=== PATIENT | female | born 1960 | race Caucasian/White ===

== ENCOUNTER → 2020-09-07 11:18 | Outpatient (CLI) | payer BC, SELFPAY ==
[2020-09-08 06:51] LABS: COVID19 Sendout Not Detected (Not Detect)
== END ==
PROVIDERS: Visit Provider Nurse Practitioner
DX: Z11.59 Encounter for screening for other viral diseases (principal)
CPT/HCPCS: 87635

== ENCOUNTER 2020-09-10 09:46 | Day surgery (SDC) | payer BC, SELFPAY ==
--- NOTE | 2020-09-10 | PATH_ITS ---
[facility] Accession Number: [id number] . 01 Material submitted: . endometrium - ENDOMETRIAL CURETTINGS . 02 Diagnosis: Endometrial Curettings: Scant benign glandular elements and non-psammomatous calcifications (non-specific) are present. Please see comment. MRV 09/14/2020 1420 Local . 02 Comment: Due to the scant nature of this biopsy, it may not be entirely floor representative of this patient's endometrium; additional sampling could be considered, if clinically appropriate. . Scant glandular fragments are present in a background of blood and fibrin. . . 02 Electronically signed: . Savi Smith MD, Pathologist NPI- [id number] . 01 Gross description: . The specimen is received in formalin, labeled endometrial curettings, and consists of multiple russell fragments of soft tissue measuring 0.6 x 0.5 x 0.2 cm in aggregate. The specimen is filtered and entirely submitted in cassette A1. ([id number]) /R 09/11/2020 1708 Local . 02 Pathologist provided ICD-10: N95.0, N88.2, N85.00, N85.4 . 02 CPT . 992025 Performed at: [address] [facility] [address], [place], [place] [id number] MD Saúl Montoya MD Phone: [phone] Performed at: 02 [facility] [address] [place], [place] [id number] MD Maryjo Cruz MD Phone: [phone]
[2020-09-10 10:07] VITALS: BMI 24.5
[2020-09-10 10:13] VITALS: BP 123/77; PULSE 62; RESP 12; TEMP 37.1; O2SAT 98
[2020-09-10] MEDS: LACTATED RINGERS 1,000 ML 100 ML IV (10:22)
--- NOTE | 2020-09-10 10:46 | PM.HP.1 ---
History of Present Illness History of Present Illness Date Patient Seen: 09/10/20 Time Patient Seen: 10:46 Chief complaint: NJC Narrative: Patient is a 60-year-old 2 para 2 with postmenopausal bleeding, endometrial hyperplasia, cervical stenosis, and insufficient endometrium on office biopsy. She is here for a D&C hysteroscopy Patient History Medical History (Updated 08/11/20 @ 18:44 by Haydee Alvarez MD) Cervical stenosis (uterine cervix) (Acute) Surgical History (Updated 08/11/20 @ 18:42 by Haydee Alvarez MD) H/O umbilical hernia repair (Acute) History of section (Acute) Family & Social History Social History: household members spouse Tobacco & Substance use: Smoking Status Never smoker alcohol intake current alcohol intake frequency 0-2 drinks per day Substance Use Type does not use Meds Home Medications and Allergies Home Medications Medication Instructions Recorded Confirmed Type atorvastatin [Lipitor] 20 mg PO DAILY 09/10/20 09/10/20 History citalopram 10 mg PO DAILY 09/10/20 09/10/20 History selenium 200 mcg PO DAILY 09/10/20 09/10/20 History Allergies Allergy/AdvReac Type Severity Reaction Status Date / Time No Known Drug Allergies Allergy Verified 09/10/20 10:00 Exam Vital Signs (past 8 hours): - 09/10/20 10:13 Temperature 98.8 F Pulse Rate 62 Respiratory Rate 12 Blood Pressure 123/77 Pulse Oximetry 98 Oxygen Delivery Method Room Air Narrative Exam Narrative: HEENT: No thyromegaly, no anterior cervical or supraclavicular lymphadenopathy. Lungs:Clear to auscultation bilaterally, no wheezes. Cardiovascular: Regular rate and rhythm, no murmurs, rubs, or gallops. Abdomen: Well-healed scars. No hepatosplenomegaly. No masses palpable. External genitalia: Normal Vagina: Normal Cervix: Stenotic Bimanual exam: 6 Week size retroverted uterus. Mobile. Rectal: No masses. Assessment & Plan Assessment & Plan narrative: Assessment: 60-year-old 2 para 2 with postmenopausal bleeding, endometrial hyperplasia, cervical stenosis, insufficient endometrial biopsy in the office Plan: D&C hysteroscopy The risks, benefits, and alternatives to the procedure were explained to the patient. The risks including bleeding, infection, and uterine perforation. She understands these risks and agrees to proceed. A full par Q was held and consent form was signed. COVID-19 COVID-19 status: Negative Result date/Date tested (Pos, Neg/Pending): 09/07/20 Time Spent With Patient Time with patient: 15-24 minutes
--- NOTE | 2020-09-10 10:50 | PM.PREOP ---
Pre-operative Note COVID-19 COVID-19 status: Negative Result date/Date tested (Pos, Neg/Pending): 09/07/20 Interval Note History & Physical reviewed/Exam performed by Physician: Yes Changes to H&P: No H&P completed within 30 days and has changed as indicated here:: 09/10/20
--- NOTE | 2020-09-10 11:12 | SUR.OPER ---
Lithotomy on padded OR bed, head on pillow, arms secured on padded arm boards at <90 degrees abduction. Legs secured in padded yellow fins stirrups.
[2020-09-10 11:43] VITALS: BP 96/62; PULSE 59; RESP 12; TEMP 36.3; O2SAT 98
[2020-09-10 11:48] VITALS: BP 100/59; PULSE 57; RESP 14; O2SAT 97
[2020-09-10 11:53] VITALS: BP 100/53; PULSE 54; RESP 14; O2SAT 99
--- NOTE | 2020-09-10 11:57 | PM.HP.1 ---
History of Present Illness History of Present Illness Date Patient Seen: 09/10/20 Time Patient Seen: 11:57 Chief complaint: SDC Narrative: Patient is a 60-year-old 2 para 2 with postmenopausal bleeding, endometrial hyperplasia, cervical stenosis, and insufficient endometrium on office biopsy. She is here for a D&C hysteroscopy Patient History Medical History (Updated 08/11/20 @ 18:44 by Haydee Alvarez MD) Cervical stenosis (uterine cervix) (Acute) Surgical History (Updated 08/11/20 @ 18:42 by Haydee Alvarez MD) H/O umbilical hernia repair (Acute) History of section (Acute) Family & Social History Social History: household members spouse Tobacco & Substance use: Smoking Status Never smoker alcohol intake current alcohol intake frequency 0-2 drinks per day Substance Use Type does not use Meds Home Medications and Allergies Home Medications Medication Instructions Recorded Confirmed Type atorvastatin [Lipitor] 20 mg PO DAILY 09/10/20 09/10/20 History citalopram 10 mg PO DAILY 09/10/20 09/10/20 History selenium 200 mcg PO DAILY 09/10/20 09/10/20 History Allergies Allergy/AdvReac Type Severity Reaction Status Date / Time No Known Drug Allergies Allergy Verified 09/10/20 10:00 Exam Vital Signs (past 8 hours): - 09/10/20 10:13 09/10/20 11:43 09/10/20 11:48 Temperature 98.8 F 97.3 F L Pulse Rate 62 59 L 57 L Respiratory Rate 12 12 14 Blood Pressure 123/77 96/62 100/59 L Pulse Oximetry 98 98 97 Oxygen Delivery Method Room Air
[2020-09-10] MEDS: OXYCODONE/ACETAMINOPHEN 5/325 TABLET 1 TAB PO (12:00)
[2020-09-10 12:08] VITALS: BP 109/66; PULSE 53; RESP 14; O2SAT 98
[2020-09-10 12:15] VITALS: BP 110/60; PULSE 55; RESP 16; TEMP 36.3; O2SAT 98
--- NOTE | 2020-09-11 10:55 | PM.GYNOP.1 ---
Operative Date/Time/Diagnoses Date of procedure: 09/11/20 Time of procedure: 11:30 Pre-op diagnosis: Postmenopausal bleeding Cervical stenosis Endometrial hyperplasia Insufficient biopsy in the office Post-op diagnosis: same Procedure & Clinicians Procedure: Procedures Operation Date: 09/10/20 11:00 Actual Procedures Side Surgeon p Hysteroscopy D&C Haydee Alvarez MD Indications: Postmenopausal bleeding Cervical stenosis Endometrial hyperplasia Insufficient biopsy in the office Surgeon: Haydee Alvarez Anesthesia Type: General (LMA) Operative Notes Findings: Retroflexed uterus Cervical stenosis Possible false tract Closure Type: not applicable Specimen(s): endometrial curettings Estimated blood loss (mL): 5 Procedure in detail: Patient was pretreated with Cytotec the night before surgery, intra vaginal. After informed consent was obtained, the patient was taken to the operating room where she was placed in the dorsal supine position. After adequate LMA general anesthesia was achieved, she was placed in the dorsal lithotomy position, and prepped and draped in the usual sterile fashion. A time-out was performed. A bivalve speculum was placed into the vagina and the anterior lip of the cervix grasped with a single-tooth tenaculum. An attempt was made to dilate the cervix to the retroverted position. The usual dilators, Hegar scope, were too large. The gold handled small dilators going down to#1 were used. The cervix was eventually dilated to the # 8 Hegar dilator. The hysteroscope passed into the endometrial cavity. The fallopian tube ostia could not be observed. There was a question of whether this was a false track. The hysteroscope was pulled back. There did not appear to be any other entry into the endometrial canal. The hysteroscope was removed. Gentle sharp curettage was performed yielding a small amount of endometrial curettings. The instruments were removed from the uterus. The single-tooth tenaculum was removed from the anterior lip of the cervix. The bivalve speculum was removed from the vagina. Sponge, lap, and instrument counts were correct x2. The patient tolerated the procedure well, and was taken to PACU in stable condition. Complications: none Post-operative Condition: stable Disposition: PACU Plan for aftercare: Home after recovery
== END 2020-09-10 12:37 | disposition home or self-care (01) ==
PROVIDERS: Referring Provider Obstetrics & Gynecology; Visit Provider Obstetrics & Gynecology
PROC: 0UDB8ZZ Extraction of Endometrium, Via Natural or Artificial Opening Endoscopic (ICD-10-PCS; CPT 58558; principal; 2020-09-10 11:00)
DX: N95.0 Postmenopausal bleeding (principal); N85.00 Endometrial hyperplasia, unspecified; N85.4 Malposition of uterus
CPT/HCPCS: 58558; J1100; J1885; J2405; J2704; J3010

== ENCOUNTER → 2021-07-08 09:45 | Outpatient (CLI) | payer BC, SELFPAY ==
[2021-07-08 11:30] LABS: COVID19 -Nasal RAPID Negative (Negative)
== END ==
PROVIDERS: PCP Registered Nurse Diabetes Educator; Visit Provider Surgery
DX: Z01.812 Encounter for preprocedural laboratory examination (principal); Z20.822 Contact with and (suspected) exposure to COVID-19
CPT/HCPCS: 87635; C9803

== ENCOUNTER 2021-07-11 08:16 | Day surgery (SDC) | payer BC, SELFPAY ==
[2021-07-11 08:38] VITALS: BP 142/76; PULSE 64; RESP 16; TEMP 36.1; O2SAT 100; BMI 25.8
[2021-07-11] MEDS: LACTATED RINGERS 1,000 ML 42 ML IV (08:52)
--- NOTE | 2021-07-11 09:09 | PM.HP.1 ---
History of Present Illness History of Present Illness Date Patient Seen: 07/11/21 Time Patient Seen: 09:09 Chief complaint: SDC Narrative: The patient presents for colorectal sreening. Previous colonoscopy 5 years ago demonstrated benign polyp. No personal or family history of colon cancer. On further history denies any recent gastrointestinal symptoms. No nausea, vomiting, abdominal pain, loss of appetite, unexplained weight loss, change in bowel habits, diarrhea, constipation, melena, hematochezia, or bright red blood per rectum. Patient History Medical History Cervical stenosis (uterine cervix) Dyslipidemia Hyperthyroidism Irritability and anger Osteoarthritis (~1999) Osteopenia (~1999) Osteoporosis (~1999) Status post hysteroscopy Surgical History Anesthesia H/O umbilical hernia repair (~08/2019) History of section History of dilatation and curettage (~08/2020) History of endometrial ablation Family & Social History Family History Father Pulmonary embolism Mother Hyperlipidemia Stroke Social History: household members spouse other She has 2 adult daughters, 1 in [place], 1 in [place]. Tobacco & Substance use: Smoking Status Never smoker alcohol intake current alcohol intake frequency 0-2 drinks per day Substance Use Type does not use Meds Home Medications and Allergies Home Medications Medication Instructions Recorded Confirmed Type estradiol 0.5 g VAGINAL 2XW #42.5 g 01/07/21 02/22/21 Rx Dim detox PO 01/31/21 02/22/21 History adrenal DX balance restorative PO 01/31/21 02/22/21 History alpha lipoic acid 200 mg capsule 400 mg PO DAILY 01/31/21 02/22/21 History calcium/magnesium PO 01/31/21 02/22/21 History hi-pro emulsi D3 PO 01/31/21 02/22/21 History melatonin 3 mg capsule 3 mg PO BEDTIME PRN 01/31/21 02/22/21 History mitochondtria nutrition PQQ PO 01/31/21 02/22/21 History atorvastatin 20 mg tablet (Lipitor) 20 mg PO DAILY #90 tab 02/21/21 07/11/21 Rx citalopram 10 mg tablet 10 mg PO DAILY #90 tab 02/21/21 02/22/21 Rx sodium,potassium,mag sulfates 17.5 See Rx Instructions PO .COMPLEX 06/01/21 Rx gram-3.13 gram-1.6 gram oral soln #354 ml (Suprep Bowel Prep Kit) Allergies Allergy/AdvReac Type Severity Reaction Status Date / Time No Known Drug Allergies Allergy Verified 07/11/21 08:33 Review of Systems Review of Systems ROS: Yes All systems reviewed with the patient and are negative except as otherwise documented Exam Vital Signs (past 8 hours): - 07/11/21 08:38 Temperature 97 F L Pulse Rate 64 Respiratory Rate 16 Blood Pressure 142/76 H Pulse Oximetry 100 Oxygen Delivery Method Room Air Narrative Exam Narrative: Constitutional-She is oriented to person, place and time. No apparent distress Cardiovascular- regular rate, no peripheral edema Pulmonary-unlabored respiratory effort, no audible wheezing Abdominal-soft, non-tender, non-distended Musculoskeletal-no cyanosis or clubbing Neurological-nonfocal, normal strength throughout, normal gait. Skin-warm and dry Assessment & Plan Assessment & Plan narrative: The patient requires colorectal screening and colonoscopy is recommended. Technical details were discussed. Risks, benefits, alternatives explained. Risks including but not limited to myocardial infarction, aspiration, bleeding, pain, missed lesion, incomplete examination, need for further radiographic studies, colonic perforation, and need for major abdominal surgery were discussed. All questions were answered to their satisfaction, and they are in agreement with this plan.
[2021-07-11] MEDS: MIDAZOLAM 5 MG/5 ML VIAL IV (09:15)
[2021-07-11] MEDS: fentaNYL 250 MCG/5 ML INJ IV (09:16)
--- NOTE | 2021-07-11 09:41 | PM.OP.ENDO ---
Operative Date/Time/Diagnoses Date of procedure: 07/11/21 Time of procedure: 09:41 Pre-op diagnosis: Personal history of colonic Post-op diagnosis: same Procedure & Clinicians Study performed: Colonoscopy Same procedure as scheduled: Yes Indications: Personal history of colonic polyps Surgeon: Karl Ramirez Procedure Notes Procedure in detail: Medications: Conscious sedation using 5mg IV midazolam and 150mcg IV of fentanyl The history and physical was performed/updated and the patient is ASA class is 2. The procedure was discussed in detail with the patient. Potential risks complications including infection, bleeding, missed diagnosis, perforation, need for surgery, and were explained. Their questions were answered and informed consent was obtained. Patient was brought to the procedure room and placed standard monitoring equipment. The patient's vital signs were monitored continuously throughout the entire procedure. Prior to starting time-out was performed. The patient was placed in the left lateral recumbent position. Procedural sedation was administered. Examination began with a thorough inspection of the perianal area there was no evidence of fissures, fistulae, external hemorrhoids or cutaneous malignancy. The colonoscopy scope was then placed into the anal canal and was advanced to the cecum, which was identified by the ileocecal valve, the appendiceal orifice and the confluence of the taenia. The scope was then slowly withdrawn examining colon thoroughly in all directions, irrigating it of any residual stool. FINDINGS 1. No masses or polyps 2. Sigmoid diverticulosis The patient tolerated the procedure well. They will be discharged once criteria are met. The prep was of good/excellent quality. The withdrawl time was 7 minutes. The sedation time was 25 minutes. Specimen(s): none sent Complications: none Impression: Normal colonoscopy Post-procedure Recommendations: Colonscopy in 10 years Disposition: same day surgery
[2021-07-11 09:45] VITALS: BP 104/56; PULSE 63; RESP 12; TEMP 36; O2SAT 96
[2021-07-11 09:49] VITALS: BP 88/53; PULSE 63; RESP 12; O2SAT 96
[2021-07-11 09:52] VITALS: BP 86/55; PULSE 60; RESP 13; O2SAT 98
[2021-07-11 09:57] VITALS: BP 100/61; PULSE 59; RESP 12; O2SAT 99
[2021-07-11 10:18] VITALS: BP 99/61; PULSE 60; RESP 15; TEMP 36.5; O2SAT 99
--- NOTE | 2021-07-11 13:24 | SUR.PHASEII ---
1030 was nauseated upon getting out of bed. Patient able to get into wheelchair unaided. Offered quease-ease and to talk with physician about medication. She opted to try the essential oils and liked it very much. She put the quease-ease into her mask and felt much better. Declined to have me check with physician for medication. Home with emesis bags 'just in case.' No wretching or emesis. Expressed appreciation for care.
== END 2021-07-11 10:35 | disposition home or self-care (01) ==
PROVIDERS: PCP Registered Nurse Diabetes Educator; Referring Provider Surgery; Visit Provider Surgery
PROC: 0DJD8ZZ Inspection of Lower Intestinal Tract, Via Natural or Artificial Opening Endoscopic (ICD-10-PCS; CPT 45378; principal; 2021-07-11 09:15)
DX: Z12.11 Encounter for screening for malignant neoplasm of colon (principal); Z86.010 Personal history of colon polyps; E03.9 Hypothyroidism, unspecified; K57.30 Diverticulosis of large intestine without perforation or abscess without bleeding
CPT/HCPCS: 45378; 99152; J2250; J3010

== ENCOUNTER → 2021-11-29 14:58 | Outpatient (CLI) | payer BC, SELFPAY ==
--- NOTE | 2021-11-29 14:59 | DI.MG.S_ITS ---
BILATERAL DIGITAL SCREENING MAMMOGRAM 3D/2D WITH CAD: 11/29/2021 CLINICAL: Routine screening. Family history of breast cancer. Comparison is made to exams dated: 07/28/2020 mammogram and 07/11/2019 mammogram - outside facility. The tissue of both breasts is heterogeneously dense. This may lower the sensitivity of mammography. Current study was also evaluated with a Computer Aided Detection (CAD) system. There are mole markers on both breasts. No significant masses, calcifications, or other findings are seen in either breast. There has been no significant interval change. IMPRESSION: NEGATIVE There is no mammographic evidence of malignancy. A 1 year screening mammogram is recommended. This exam was interpreted at Station ID: [id number]. NOTE: For mammograms, a report in lay terms will be sent to the patient. Approximately 15% of breast malignancies will not be visualized mammographically. In the management of a palpable breast mass, a negative mammogram must not discourage biopsy of a clinically suspicious lesion. Electronically Signed By: Saúl baker/val:11/29/2021 16:07:29 letter sent: Normal Exam ACR BI-RADS Category 1: Negative [id number]
== END ==
PROVIDERS: PCP Registered Nurse Diabetes Educator; Referring Provider Registered Nurse Diabetes Educator; Visit Provider Registered Nurse Diabetes Educator
DX: Z12.31 Encounter for screening mammogram for malignant neoplasm of breast (principal)
CPT/HCPCS: 77063; 77067

== ENCOUNTER → 2022-02-21 14:24 | Outpatient (CLI) | payer BC, SELFPAY ==
[2022-02-21 15:57] LABS: COVID19 -Nasal RAPID Negative (Negative)
== END ==
PROVIDERS: PCP Family Medicine; Visit Provider Obstetrics & Gynecology
DX: Z01.812 Encounter for preprocedural laboratory examination (principal); Z20.822 Contact with and (suspected) exposure to COVID-19
CPT/HCPCS: 87635

== ENCOUNTER 2022-02-23 08:24 | Day surgery (SDC) | payer BC, SELFPAY ==
[2022-02-22 12:41] VITALS: BMI 27.8
[2022-02-23] VITALS (7 sets, daily range): BP systolic 99–122; BP diastolic 54–75; PULSE 57–69; RESP 12–16; TEMP 36.1–36.9; O2SAT 96–100; BMI 27.8
--- NOTE | 2022-02-23 | PATH_ITS ---
Note [facility] Accession Number: [id number] TESTS RESULT FLAG UNITS REF RANGE LAB Clinician Provided Cytology Information No. of containers..01 Body Fluid in a Sterile Container Source: PELVIC WASHING DIAGNOSIS: PELVIC WASHING NEGATIVE FOR MALIGNANT CELLS. SCANT CELLULARITY. THIS INTERPRETATION INCLUDES EVALUATION OF A CELL BLOCK. Pathologist ICD10: R89.9 Signed out by: Sonia Moore MD, Pathologist NPI- [id number] Performed by: Carlos Powell, Systems Analyst Engineer ([facility]) Gross description: 20 CC, RED, CLOUDY RECEIVED: FRESH IN ORANGE CAP CONTAINER. /[facility] 02/24/2022 0815 Local FLAG LEGEND: L-Low Normal,H-High Normal,LL-Alert Low,HH-Alert High <-Panic Low,>-Panic High,A-Abnormal,AA-Critical Abnormal Performed at: 01 =Z [facility] [address] [place] [address] [address], [place] [address] Saúl Montoya MD, Performed at: 01 [facility] [address], [place], [place] [id number] MD Saúl Montoya MD Phone: [phone]
[2022-02-23] MEDS: LACTATED RINGERS 1,000 ML 42 ML IV ×2 (09:19→10:56)
--- NOTE | 2022-02-23 09:29 | PM.PREOP ---
Pre-operative Note COVID-19 COVID-19 status: Negative Result date/Date tested (Pos, Neg/Pending): 02/21/22 Criteria for continued procedure: Delay expected to result in less-positive ultimate med/surg outcome and Non-surgical alternatives not available or appropriate per current SOC Interval Note History & Physical reviewed/Exam performed by Physician: Yes Changes to H&P: No H&P completed within 30 days and has changed as indicated here:: 02/13/2022
[2022-02-23 09:58] LABS: Add Manual Diff / Slide Review NO; Basophils Absolute Auto 0 /uL (0-100); Basophils Percent Auto 0.8 % (0-2); Eosinophils Absolute Auto 200 /uL (0-450); Eosinophils Percent Auto 5.2 % (2-4); Hematocrit 40.6 % (36-46); Hemoglobin 13.7 g/dL (12.0-16.0); Lymphocytes Absolute Auto 1400 /uL (1100-4500); Lymphocytes Percent Auto 29.1 % (25-40); Mean Corpuscular HGB Conc 33.7 % (30-36); Mean Corpuscular Hemoglobin 30.6 PG (26-34); Mean Corpuscular Volume 90.9 fL (80-100); Monocytes Absolute Auto 500 /uL (0-900); Monocytes Percent Auto 11.6 % (3-14); Neutrophils Absolute Auto 2500 /uL (1500-7000); Neutrophils Percent Auto 53.3 % (50-75); Platelet Count 241 X10^3/uL (150-400); Red Blood Cell Count 4.47 X10^6/uL (4.0-5.2); Red Cell Distribution Width 12.7 % (11.6-14.8); White Blood Cell Count 4.7 X10^3/uL (4.5-11.0)
[2022-02-23 10:03] LABS: Alanine Aminotransferase 20 IU/L (<35); Albumin 4.7 g/dL (3.5-5.0); Albumin Globulin Ratio 1.5 (1.0-2.8); Alkaline Phosphatase 117 U/L (38-126); Aspartate Aminotransferase 35 IU/L (14-36); BUN Creatinine Ratio 10.8 (6-22); Bilirubin Total 0.8 mg/dL (0.2-1.3); Blood Urea Nitrogen 8 mg/dL (7-17); Calcium 9.7 mg/dL (8.4-10.2); Carbon Dioxide 29 mmol/L (22-32); Chloride 103 mmol/L (98-107); Cholesterol 221 mg/dL (140-199); Estimated Glomerular Filt Rate > 60 mL/min (>60); Globulin 3.1 g/dL (1.7-4.1); Glucose 96 mg/dL (80-110); HDL Cholesterol 96 mg/dL (40-60); HEMOLYSIS < 15 (0-50); LDL Cholesterol Calculated 111 mg/dL (<100); Potassium 4.2 mmol/L (3.4-5.1); Sodium 139 mmol/L (137-145); Total Protein 7.8 g/dL (6.3-8.2); Triglycerides 71 mg/dL (35-150)
[2022-02-23] MEDS: CEFAZOLIN 2 GM/20 ML SYRINGE IV (10:11)
[2022-02-23 10:33] LABS: TSH w/ Reflex to FT4 1.64 uIU/mL (0.47-4.68)
--- NOTE | 2022-02-23 10:45 | SUR.OPER ---
Lithotomy on padded OR bed. [place] Pad Positioner under torso. Head on pillow, arms padded and tucked at sides. Legs secured in padded yellow fins stirrups.
[2022-02-23] MEDS: BUPIVACAINE 0.5% (PF) 30 ML, EPINEPHrine 0.15 MG INJ (11:01)
--- NOTE | 2022-02-23 11:19 | PM.GYNOP.1 ---
Operative Date/Time/Diagnoses Date of procedure: 02/23/22 Time of procedure: 11:19 Pre-op diagnosis: Persistent postmenopausal bleeding Unable to do endometrial biopsy in the office D&C hysteroscopy 2019 was normal Post-op diagnosis: same Procedure & Clinicians Procedure: Procedures Operation Date: 02/23/22 09:45 Actual Procedure Side Surgeon p Laparoscopic Supracervical Hysterectomy w. bilateral salpingo-oophorectomy & pelvic washings Haydee Alvarez MD Indications: Persistent postmenopausal bleeding Unable to do endometrial biopsy in the office D&C hysteroscopy in 2019 was normal Surgeon: Haydee Alvarez Hammer Heater: Leslie Ramirez Anesthesia Type: General and Local Operative Notes Findings: 5 week size retroverted uterus Normal ovaries Tubes status post ligation Normal appendix Normal liver and gallbladder Closure Type: primary Specimen(s): left tube & ovary, right tube & ovary, uterus and washings Applied: catheter (Removed at the end of the case) Estimated blood loss (mL): 50 Blood products transfused: none Procedure in detail: The patient was taken to the operating room where she was placed in the dorsal supine position. After adequate general endotracheal anesthesia was achieved, she was placed in the dorsal lithotomy position, and prepped and draped in the usual sterile fashion. A timeout was performed. A bivalve speculum was placed into the vagina and the anterior lip of the cervix grasped with a single-tooth tenaculum. The cervical os could not be dilated due to stenosis. A single-tooth tenaculum was removed from the anterior lip of the cervix and the bivalve speculum was removed from the vagina. A moistened sponge stick was placed into the vagina. Attention was then turned to the abdomen where 6 mL of half percent Marcaine with epinephrine were injected in the umbilical fold. A 5 mm incision was made. The veress needle was placed into the peritoneal cavity, and its placement confirmed by aspiration and drop test. The veress needle was removed. A 5 mm trocar was placed without difficulty. 2 other incisions were made 4 cm lateral to the umbilicus after 5 mL of half percent Marcaine with epinephrine were injected. These were 5 mm incisions. Two, 5 mm trochars were placed under direct visualization. The right tube and ovary were grasped with an atraumatic grasper. Using the power seal, the infundibulopelvic ligament was cauterized and cut. The cornua of the uterus was then grasped with an atraumatic grasper. The round ligament and broad ligament were cauterized and cut with the Powerseal. Hemostasis was achieved. The bladder flap was created using the Powerseal with cautery and cut custodial across. The uterine arteries on the right side were extensively cauterized with the Powerseal. All of this was repeated on the left side. The remainder of the bladder flap was created using the Powerseal, and the bladder taken down off the lower uterine segment and cervix. Using the L[place]oop, the cervix was amputated from the uterus 2 cm above the uterosacral ligaments. There was a small amount of bleeding noted from the posterior edge of the cervix, and this was cauterized for hemostasis. 6 mL of half percent Marcaine with epinephrine were injected above the pubic symphysis. A 12mm incision was made. A 12 mm trocar was placed under direct visualization. An Endobag was placed through the suprapubic incision and the uterus, tubes and ovaries were placed into the Endobag. An Severo was placed into the endobag. The uterus was morcellated in approximately 2 pieces. The tubes and ovaries were also removed from the Endobag. The Endobag was removed from the peritoneal cavity. The pelvis was copiously irrigated with warm normal saline. No bleeding was noted. 20 mL of 0.2% ropivacaine were placed over the pelvic pedicles. The pelvis was copiously irrigated with warm normal saline. There was no bleeding noted. The instruments were removed from the abdomen. The CO2 was allowed to escape. The suprapubic incision was closed on the fascia with 0 Vicryl. All of the incisions were closed with 4-0 Biosyn in a subcuticular fashion. Steri strips, 2x2's and op sites were placed over the incisions. The moistened sponge stick was removed from the vagina. Sponge, lap, and instrument counts were correct x 2. The patient tolerated the procedure well, was taken to PACU in stable condition. Complications: none Post-operative Condition: stable Disposition: PACU Plan for aftercare: Home after recovery
[2022-02-23] MEDS: OXYCODONE/ACETAMINOPHEN 5/325 TABLET 1 TAB PO (11:53)
--- NOTE | 2022-03-06 | PATH_ITS ---
[facility] Accession Number: [id number] No. of containers..01 Tissue . 01 Material submitted: . uterus - UTERUS, BILATERAL FALLOPIAN TUBES, BILATERAL OVARIES . 02 Diagnosis: Uterus, Bilateral Fallopian Tubes and Ovaries, Supracervical Hysterectomy and Bilateral Salpingo-oophorectomy: Myometrium with no diagnostic abnormality. No viable endometrium identified, suggestive of prior endometrial ablation. Bilateral ovaries with no diagnostic abnormality. Bilateral fallopian tubes with no diagnostic abnormality. No evidence of neoplasm. MRV 03/02/2022 1519 Local . 02 Electronically signed: . Shady Rhodes MD, PhD, Pathologist NPI- [id number] . 01 Gross description: . The specimen is received in formalin, labeled uterus, bilateral fallopian tubes, bilateral ovaries, and consists of a disrupted supracervical uterus weighing 33 grams, measuring 4.0 cm from fundus to cervical stump, 3.5 cm from cornu to cornu, and 2.8 cm from anterior to posterior. Received attached to the uterus is the left fimbriated fallopian tube (5.0 x 0.6 cm), left ovary (1.0 grams, 2.6 x 1.5 x 0.7 cm), right fimbriated fallopian tube (4.0 x 0.6 cm), and right ovary (2.0 grams, 2.5 x 1.3 x 0.7 cm). The bilateral fallopian tubes appear grossly consistent with previous tubal ligation. The serosal surfaces are grossly unremarkable. Opening the specimen reveals a portion of endometrial cavity measuring 1.5 cm in length x 0.4 cm in width, which appears stenosed. The endometrial cavity is lined by unremarkable endometrium (0.1 cm average thickness), and sectioning reveals unremarkable myometrium (1.0 cm average thickness). The bilateral fallopian tubes and ovaries are grossly unremarkable upon sectioning. The specimen is representatively submitted as follows: . A1: Right ovary, reps. A2: Entire fimbria and customer counter representative cross sections of right fallopian tube. A3: Data Control Clerk Supervisor cross sections of left ovary. A4: Entire fimbria and customer counter representative cross sections of left fallopian tube. A5: Anterior endomyometrium, full thickness rep. A6: Posterior endomyometrium, full thickness rep (transected). ([id number]) A7: Remainder of posterior endometrium, serially sectioned. A8: Additional customer counter representative sections of anterior endometrium, serially sectioned. ([id number]) /[facility] 02/28/2022 1134 Local . 02 Pathologist provided ICD-10: N95.0, N88.2 . 02 CPT . 476660 Specimen Comment: A courtesy copy of this report has been sent to [phone] Specimen Comment: A duplicate report has been generated due to demographic updates. Performed at: 01 [facility] [address] [place] [address], [place], [place] [id number] MD Saúl Montoya MD Phone: [phone] Performed at: 02 [facility] [address] [place], [place] [id number] MD Maryjo Cruz MD Phone: [phone]
== END 2022-02-23 12:51 | disposition home or self-care (01) ==
LOC: OR 08:25 → AC 08:40
PROVIDERS: Registered Nurse Diabetes Educator; PCP Family Medicine; Referring Provider Obstetrics & Gynecology; Visit Provider Obstetrics & Gynecology
PROC: 0UT94ZL Resection of Uterus, Supracervical, Percutaneous Endoscopic Approach (ICD-10-PCS; CPT 58542; principal; 2022-02-23 09:45)
DX: N95.0 Postmenopausal bleeding (principal); N88.2 Stricture and stenosis of cervix uteri; E78.5 Hyperlipidemia, unspecified; M81.0 Age-related osteoporosis without current pathological fracture
CPT/HCPCS: 58542; 36415; 80053; 80061; 84443; 85025; J0171; J0690; J1100; J1885; J2250; J2405; J2704; J3010

== ENCOUNTER → 2022-12-06 08:38 | Outpatient (CLI) | payer BC, SELFPAY ==
--- NOTE | 2022-12-06 | DI.MG.S_ITS ---
BILATERAL DIGITAL SCREENING MAMMOGRAM 3D/2D WITH CAD: 12/06/2022 CLINICAL: Routine screening. Family history of breast cancer. Comparison is made to exams dated: 11/29/2021 mammogram - [facility], 07/28/2020 mammogram, and 07/11/2019 mammogram - outside facility. Both breasts are heterogeneously dense, which may obscure small masses (category c / 51-75% glandular tissue). Current study was also evaluated with a Computer Aided Detection (CAD) system. No significant masses, calcifications, or other findings are seen in either breast. There has been no significant interval change. IMPRESSION: NEGATIVE There is no mammographic evidence of malignancy. A 1 year screening mammogram is recommended. Based on the Tyrer Cuzick model (a risk assessment model) the patient's lifetime risk is 12.1% and her 10 year risk is 5.1%. According to the ACR, ACS, and NCCN guidelines, an annual breast MRI exam along with mammogram is recommended if the patient's lifetime risk is 20% or greater. This exam was interpreted at Station ID: [id number]. NOTE: For mammograms, a report in lay terms will be sent to the patient. Approximately 15% of breast malignancies will not be visualized mammographically. In the management of a palpable breast mass, a negative mammogram must not discourage biopsy of a clinically suspicious lesion. Electronically Signed By: Tony coppola/val:12/06/2022 11:00:36 letter sent: Normal Exam ACR BI-RADS Category 1: Negative [id number]
== END ==
PROVIDERS: PCP Family Medicine; Referring Provider Family Medicine; Visit Provider Family Medicine
DX: Z12.31 Encounter for screening mammogram for malignant neoplasm of breast (principal); Z80.3 Family history of malignant neoplasm of breast
CPT/HCPCS: 77063; 77067

== ENCOUNTER → 2023-12-13 07:23 | Outpatient (CLI) | payer BC, SELFPAY ==
--- NOTE | 2023-12-13 07:27 | DI.MG.S_ITS ---
BILATERAL DIGITAL SCREENING MAMMOGRAM 3D/2D WITH CAD: 12/13/2023 CLINICAL: Routine screening. Family History of Breast Cancer. Comparison is made to exams dated: 12/06/2022 mammogram, 11/29/2021 mammogram - [facility], and 07/28/2020 mammogram - outside facility. Both breasts are heterogeneously dense, which may obscure small masses (category c / 51-75% glandular tissue). Current study was also evaluated with a Computer Aided Detection (CAD) system. No significant masses, calcifications, or other findings are seen in either breast. There has been no significant interval change. IMPRESSION: NEGATIVE There is no mammographic evidence of malignancy. A 1 year screening mammogram is recommended. Based on the Tyrer Cuzick model (a risk assessment model) the patient's lifetime risk is 11.8% and her 10 year risk is 5.2%. According to the ACR, ACS, and NCCN guidelines, an annual breast MRI exam along with mammogram is recommended if the patient's lifetime risk is 20% or greater. This exam was interpreted at Station ID: [id number]. NOTE: For mammograms, a report in lay terms will be sent to the patient. Approximately 15% of breast malignancies will not be visualized mammographically. In the management of a palpable breast mass, a negative mammogram must not discourage biopsy of a clinically suspicious lesion. Electronically Signed By: Kiran davis/val:12/13/2023 16:09:19 letter sent: Normal Exam ACR BI-RADS Category 1: Negative [id number]
[2023-12-13 08:58] LABS: Add Manual Diff / Slide Review NO; Basophils Absolute Auto 0 /uL (0-100); Basophils Percent Auto 0.8 % (0-2); Eosinophils Absolute Auto 200 /uL (0-450); Eosinophils Percent Auto 2.8 % (2-4); Hematocrit 38.2 % (36-46); Hemoglobin 13.2 g/dL (12.0-16.0); Lymphocytes Absolute Auto 1700 /uL (1100-4500); Lymphocytes Percent Auto 30.5 % (25-40); Mean Corpuscular HGB Conc 34.7 % (30-36); Mean Corpuscular Hemoglobin 31.4 PG (26-34); Mean Corpuscular Volume 90.7 fL (80-100); Monocytes Absolute Auto 600 /uL (0-900); Monocytes Percent Auto 10.4 % (3-14); Neutrophils Absolute Auto 3000 /uL (1500-7000); Neutrophils Percent Auto 55.5 % (50-75); Platelet Count 283 X10^3/uL (150-400); Red Blood Cell Count 4.21 X10^6/uL (4.0-5.2); Red Cell Distribution Width 12.8 % (11.6-14.8); White Blood Cell Count 5.4 X10^3/uL (4.5-11.0)
[2023-12-13 09:15] LABS: Alanine Aminotransferase 16 IU/L (<35); Albumin 4.6 g/dL (3.5-5.0); Albumin Globulin Ratio 1.6 (1.0-2.8); Alkaline Phosphatase 81 U/L (38-126); Aspartate Aminotransferase 26 IU/L (14-36); BUN Creatinine Ratio 14.3 (6-22); Bilirubin Total 0.8 mg/dL (0.2-1.3); Blood Urea Nitrogen 11 mg/dL (7-17); Calcium 10.1 mg/dL (8.4-10.2); Carbon Dioxide 29 mmol/L (22-32); Chloride 99 mmol/L (98-107); Cholesterol 213 mg/dL (140-199); Estimated Glomerular Filt Rate > 60 mL/min (>60); Globulin 2.9 g/dL (1.7-4.1); Glucose 85 mg/dL (80-110); HDL Cholesterol 77 mg/dL (40-60); HEMOLYSIS < 15 (0-50); LDL Cholesterol Calculated 115 mg/dL (<100); Potassium 4.2 mmol/L (3.4-5.1); Sodium 136 mmol/L (137-145); Total Protein 7.5 g/dL (6.3-8.2); Triglycerides 107 mg/dL (35-150)
== END ==
PROVIDERS: PCP Family Medicine; Referring Provider Family Medicine; Visit Provider Family Medicine
DX: Z80.3 Family history of malignant neoplasm of breast (principal); Z12.31 Encounter for screening mammogram for malignant neoplasm of breast; R92.333 Mammographic heterogeneous density, bilateral breasts; M81.0 Age-related osteoporosis without current pathological fracture; E78.5 Hyperlipidemia, unspecified
CPT/HCPCS: 36415; 77063; 77067; 80053; 80061; 82306; 85025

== ENCOUNTER → 2025-01-06 07:55 | Outpatient (CLI) | payer BC, SELFPAY ==
--- NOTE | 2025-01-06 07:56 | DI.MG.S_ITS ---
BILATERAL DIGITAL SCREENING MAMMOGRAM 3D/2D WITH CAD: 01/06/2025 CLINICAL: Routine screening. Family history of breast cancer. Comparison is made to exams dated: 12/13/2023 mammogram, 12/06/2022 mammogram, and 11/29/2021 mammogram - [facility]. The breasts are heterogeneously dense, which may obscure small masses (category c / 51-75% glandular tissue). Current study was also evaluated with a Computer Aided Detection (CAD) system. No significant masses, calcifications, or other findings are seen in either breast. There has been no significant interval change. IMPRESSION: NEGATIVE There is no mammographic evidence of malignancy. A 1 year screening mammogram is recommended. Based on the Tyrer Cuzick model (a risk assessment model) the patient's lifetime risk is 10.7% and her 10 year risk is 5.0%. According to the ACR, ACS, and NCCN guidelines, an annual breast MRI exam along with mammogram is recommended if the patient's lifetime risk is 20% or greater. This exam was interpreted at Station ID: [id number]. NOTE: For mammograms, a report in lay terms will be sent to the patient. Approximately 15% of breast malignancies will not be visualized mammographically. In the management of a palpable breast mass, a negative mammogram must not discourage biopsy of a clinically suspicious lesion. Electronically Signed By: Tony coppola/val:01/06/2025 13:57:45 letter sent: Normal Exam ACR BI-RADS Category 1: Negative
[2025-01-06 10:16] LABS: Cholesterol 218 mg/dL (140-199); HDL Cholesterol 85 mg/dL (40-60); LDL Cholesterol Calculated 113 mg/dL (<100); Triglycerides 100 mg/dL (35-150)
[2025-01-07 03:36] LABS: CRP, High Sensitivity 2.37 mg/L (0.00-3.00)
== END ==
PROVIDERS: PCP Family Medicine; Referring Provider Family Medicine; Visit Provider Family Medicine
DX: Z12.31 Encounter for screening mammogram for malignant neoplasm of breast (principal); Z80.3 Family history of malignant neoplasm of breast; R92.333 Mammographic heterogeneous density, bilateral breasts; E78.5 Hyperlipidemia, unspecified
CPT/HCPCS: 36415; 77063; 77067; 80061; 86140

== ENCOUNTER → 2025-02-05 09:14 | Outpatient (CLI) | payer BC, SELFPAY | PROVIDERS: PCP Family Medicine; Referring Provider Family Medicine; Visit Provider Family Medicine | DX: Z12.39 Encounter for other screening for malignant neoplasm of breast (principal); Z80.3 Family history of malignant neoplasm of breast | CPT/HCPCS: 36415 ==